=== PATIENT | male | born 1985 | race Caucasian/White ===

== ENCOUNTER 2021-06-13 07:40 | Day surgery (SDC) | payer OTHER ==
[~2021-06-13] VITALS: Ht 180.3 cm; Wt 75.0 kg
[2021-06-13 07:38] VITALS: BP 116/58
--- NOTE | 2021-06-13 07:38 | NUR ---
PATIENT AMBULATORY TO ROOM WITH ANR STAFF. PATIENT IS ALERT AND ORIENTED X3. ADMISSION ASSESSMENT COMPLETED AT THIS TIME. IV ESTABLISHED LABS OBTAINED. OREINTED PATIENT TO ROOM AND UNIT. CALL LIGHT IN REACH. WILL CONTINUE TO MONITOR.
[2021-06-13 09:58] LABS: HEMATOCRIT 40.8 % (39.0-50.0); HEMOGLOBIN 14.6 g/dl (14.0-18.0); MEAN CELL VOLUME 94.2 fL CALC (80.0-100.0); MEAN CORPUSCULAR HGB 33.7 pG CALC (26.0-32.0); MEAN CORPUSCULAR HGB CONC 35.8 g/dL CAL (32.0-36.0); NEUT# 2.62 thou/uL (1.82-7.42); RED BLOOD COUNT 4.33 mill/uL (4.70-6.10); RED CELL DISTRI WIDTH 12.1 % (11.5-15.5)
[2021-06-13 10:00] VITALS: BP 101/65
[2021-06-13 10:05] LABS: ALBUMIN 4.2 g/dL (3.2-5.0); ALKALINE PHOSPHATASE 62 u/l (38-126); ANION GAP 9 (6-22 (CALC)); BILIRUBIN, TOTAL 0.5 mg/dL (0.0-1.4); BUN 13 mg/dL (9-20); BUN/CREATININE RATIO 20 (12-20 (CALC)); CARBON DIOXIDE 30 mmol/l (22-30); CHLORIDE 104 mmol/l (95-108); CREATININE 0.7 mg/dL (0.7-1.3); GFR > 60 ML/MIN (>=60 (CALC)); GFR FOR AFR.AMER. > 60 ML/MIN (>=60 (CALC)); SGOT/AST 35 u/l (17-59); SODIUM 139 mmol/l (137-146); TOTAL PROTEIN 7.2 g/dL (6.3-8.2)
--- NOTE | 2021-06-13 10:18 | NUR ---
DR CORTES AT BEDSIDE AT THIS TIME.
--- NOTE | 2021-06-13 11:30 | NUR ---
patient to anr procedure via bed at this time.
[2021-06-13] MEDS ORDERED: CLONIDINE0.1 MG PO (14:08)
[2021-06-13] MEDS ORDERED: KLONOPIN0.5 MG PO (14:09)
[2021-06-13] MEDS ORDERED: NALTREXONE50 MG PO (14:09)
--- NOTE | 2021-06-13 17:50 | NUR ---
PT. TO ROOM VIA BED ACCOMPANIED BY STAFF; O2 2L VIA NC; VS OBTAINED; PT DROWSY/AROUSABLE; BED ALARM IN PLACE FOR SAFETY; CALL WADE WITHIN REACH; WILL CONTINUE TO MONITOR.
[2021-06-13 18:00] VITALS: BP 105/72
[2021-06-13 18:15] VITALS: BP 104/71
[2021-06-13 18:30] VITALS: BP 126/80
--- NOTE | 2021-06-13 20:36 | NUR ---
ASSESSMENT COMPLETED, PLEASE SEE DOCUMENTATION. PTIN BED IN THE FOWLERS POSITION. BREATHING EVENA AND UNLABORED. PT CONTINUES TO BE MENTALLY ALTERED FOLLOWING PROCEDURE. NO COMPLAINTS VOICED, NO S/S OF DISTRESS. SAFETY PRECAUTIONS REMAIN IN PLACE, BED IN LOW POSITION, BED ALARM SET, AND CALL WADE WITHIN REACH. WILL CONTINUE TO MONITOR
--- NOTE | 2021-06-13 21:48 | NUR ---
PHARMACY INDICATED THEY NEVER RECEIVED POST PROCEDURE ORDERS. ORDERS FAXED AT [id number] TO [facility]
[2021-06-13 23:08] VITALS: BP 119/76
--- NOTE | 2021-06-13 23:08 | NUR ---
WHILE CHECKING PT B/P AND PULSE PRIOR TO CLONIDINE ADMINSTRATION NOTED THAT PT PULSE WAS FLUXUATING BETWEEN 47-52, HELD CLONIDINE AT THIS TIME. PT IS ASYMPTOMACTIC FOR BRADYCARDIA. WILL MONITOR
--- NOTE | 2021-06-14 00:09 | NUR ---
PT IS IN BED RESTING AT THIS TIME. PT IS ABLE TO USE URINAL INDEPENDENTLY, TAKING PO FLUIDS NOW. NO REPOTS OF NAUSEA/VOMMITING REPORTED. SAFETY PRECAUTIONS REMAIN IN PLACE. WILL MONITOR
--- NOTE | 2021-06-14 02:15 | NUR ---
pt c/o of severe anxiety and restlessness, ativan adminstered as per order. pt hr has been hovering in the high 40's to low 50's while sleeping, upon waking hr increases to 70bpm prior to ativan dosing. hr recheck at this time, hr remains high 40's low 50's while sleeping. pt denies sob or dizziness related to bradycardia. will monitor
[2021-06-14 03:45] VITALS: BP 121/65
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
[2021-06-14 06:09] LABS: HEMATOCRIT 41.1 % (39.0-50.0); HEMOGLOBIN 14.7 g/dl (14.0-18.0); IMMATURE GRANULOCYTES 0.1 % (0.0-5.0); MEAN CELL VOLUME 91.3 fL CALC (80.0-100.0); MEAN CORPUSCULAR HGB 32.7 pG CALC (26.0-32.0); MEAN CORPUSCULAR HGB CONC 35.8 g/dL CAL (32.0-36.0); NEUT# 6.91 thou/uL (1.82-7.42); RED BLOOD COUNT 4.5 mill/uL (4.70-6.10); RED CELL DISTRI WIDTH 11.8 % (11.5-15.5)
[2021-06-14 06:12] LABS: ALBUMIN 3.8 g/dL (3.2-5.0); ALKALINE PHOSPHATASE 57 u/l (38-126); BILIRUBIN, TOTAL 0.7 mg/dL (0.0-1.4); BUN 12 mg/dL (9-20); BUN/CREATININE RATIO 19 (12-20 (CALC)); CHLORIDE 107 mmol/l (95-108); CREATININE 0.6 mg/dL (0.7-1.3); GFR > 60 ML/MIN (>=60 (CALC)); GFR FOR AFR.AMER. > 60 ML/MIN (>=60 (CALC)); MAGNESIUM 1.8 mg/dL (1.6-2.3); POTASSIUM 4.2 mmol/l (3.5-5.1); SGOT/AST 32 u/l (17-59); SODIUM 139 mmol/l (137-146); TOTAL PROTEIN 6.7 g/dL (6.3-8.2)
[2021-06-14 06:15] LABS: ANION GAP 14 (6-22 (CALC)); CARBON DIOXIDE 22 mmol/l (22-30)
[2021-06-14 07:00] VITALS: BP 114/74
[2021-06-14 07:40] VITALS: BP 114/74
--- NOTE | 2021-06-14 07:40 | NUR ---
MEDIA BUYER DONE AT THIS TIME. PATIENT ALERT AND ORIENTED. VITAL SIGNS OBTAINED DR. CORTES CALLED AND ORDERS GIVEN TO HOLD CLONIDINE 0.1MG AT THIS TIME DUE TO LOW TESHA PULSE RATE. SIDERAILS ARE UP X 3 CALL LIGHT WITHIN REACH BED ALARM ENGAGED. MEDIA BUYER DONE SEE INTERVENTIONS. FLUIDS OFFERED AND PATIENT DID DRINK 1 CUP OF WATER AT THIS TIME.
[2021-06-14 07:43] VITALS: BP 114/74
--- NOTE | 2021-06-14 12:15 | NUR ---
PATIENT SITTING AT BEDSIDE EATING LUNCH AT THIS TIME. PATIENT IS FULLY DRESSED AND HAS D/C PAPERWORK DONE AT THIS TIME.
--- NOTE | 2021-06-14 13:26 | NUR ---
PATIENT REPORTED OFF TO TYRONE WALTER AT THIS TIME.
== END 2021-06-14 14:11 | disposition home or self-care (01) | DRG 897 ==
LOC: ANR 07:40 → MS2 07:47 → ANR 11:24
PROVIDERS: ATTEND Anesthesiology
DX: F11.20 Opioid dependence, uncomplicated (principal)
CPT/HCPCS: J2060; J2354